=== PATIENT | male | born 1990 | race Caucasian/White ===

== ENCOUNTER 2017-10-23 12:39 | Emergency (ER) | payer OTHER ==
[2017-10-23] MEDS ORDERED: IBUPROFEN 400 MG TAB ONE (13:38)
--- NOTE | 2017-10-23 15:13 | ER ---
Nurse's Notes [facility] Name: Delvin Sheppard Age: 27 yrs Sex: Male : 1990 Arrival Date: 10/23/2017 Time: 12:43 Bed 12 Private MD: Dale Hopkins Diagnosis: Pain in right knee Presentation: 10/23 13:10 Presenting complaint: Patient states: R knee pain x 3 months. Pt states the pain went ss away, but after playing kickball yesterday the pain is much worse. Transition of care: patient was not received from another setting of care. Onset of symptoms is unknown. Risk Assessment: Do you want to hurt yourself or someone else? Patient reports no desire to harm self or others. Initial Sepsis Screen: Does the patient meet any 2 criteria? No. Patient's initial sepsis screen is negative. Does the patient have a suspected source of infection? No. Patient's initial sepsis screen is negative. Note Significant other suggest to just have an MRI done. Care prior to arrival: None. 13:10 Method Of Arrival: Wheelchair ss 13:10 Acuity: ASHLEY 4 ss Historical: - Allergies: 13:14 No Known Allergies; ss - Home Meds: 13:14 None [Active]; ss - PMHx: 13:14 chronic back pain; ss - PSHx: 13:14 None; ss - Immunization history:: Adult Immunizations up to date. - Social history:: Smoking status: Patient/guardian denies using tobacco. - Ebola Screening: : Patient denies exposure to infectious person Patient denies travel to an Ebola-affected area in the 21 days before illness onset. Screenin:26 Abuse screen: Denies threats or abuse. Denies injuries from another. Nutritional aj screening: No deficits noted. Tuberculosis screening: No symptoms or risk factors identified. Fall Risk None identified. Assessment: 13:26 General: Appears in no apparent distress. comfortable, Behavior is calm, cooperative, aj appropriate for age. Pain: Complains of pain in right knee. Neuro: Level of Consciousness is awake, alert, obeys commands, Oriented to person, place, time, situation. Respiratory: Airway is patent Respiratory effort is even, unlabored, Respiratory pattern is regular, symmetrical. Derm: Skin is intact, is healthy with good turgor, Skin is pink, warm \T\ dry. normal. 15:20 Reassessment: Patient appears in no apparent distress at this time. No changes from aj previously documented assessment. Patient and/or family updated on plan of care and expected duration. Pain level reassessed. Patient is alert, oriented x 3, equal unlabored respirations, skin warm/dry/pink. Vital Signs: 13:14 BP 148 / 90; Pulse 92; Resp 15; Temp 98.2(O); Pulse Ox 99% on R/A; Weight 86.18 kg; ss Height 6 ft. 0 in. (182.88 cm); Pain 8/10; 13:14 Body Mass Index 25.77 (86.18 kg, 182.88 cm) ED Course: 12:43 Patient arrived in ED. mr 12:43 Dale Hopkins MD is Private Physician. mr 13:13 Triage completed. ss 13:14 Arm band placed on right wrist. ss 13:25 Carla Cervantes, JOB is Primary Nurse. aj 13:26 Patient has correct armband on for positive identification. aj 13:28 Terrance Eng PA is PHCP. cp 13:28 Andi Noriega MD is Attending Physician. cp 14:24 X-ray completed. Portable x-ray completed in exam room. Patient tolerated procedure ml well. 14:37 XRAY Knee RIGHT 3 view In Process Unspecified. EDMS 15:12 Bryce Boudreaux MD is Referral Physician. cp 15:20 No provider procedures requiring assistance completed. Patient did not have IV access aj during this emergency room visit. Crutch training done. Knee immobilizer applied on right knee. Administered Medications: 13:38 Drug: Ibuprofen 800 mg Route: PO; aj 15:20 Follow up: Response: Pain is decreased aj Outcome: 15:12 Discharge ordered by . cp 15:20 Discharged to home ambulatory, with crutches, with family. aj 15:20 Condition: good 15:20 Discharge instructions given to patient, family, Instructed on discharge instructions, follow up and referral plans. medication usage, crutch walking, Demonstrated understanding of instructions, follow-up care, medications, crutch walking, Prescriptions given X 1. 15:22 Patient left the ED. aj Signatures: Dispatcher [employer] EDMS Carla Cervantes, RN Jemma Fishman Melissa ml Smirch, Shelby, RN RN ss Albertina, Terrance, PA PA cp
--- NOTE | 2017-10-23 15:13 | EDPHYS ---
Physician Documentation [facility] Name: Delvin Sheppard Age: 27 yrs Sex: Male : 1990 Arrival Date: 10/23/2017 Time: 12:43 Bed 12 Private MD: Dale Hopkins ED Physician Andi Noriega HPI: 10/23 13:34 This 27 yrs old Male presents to ER via Wheelchair with complaints of Knee cp Pain. 13:35 The patient presents with decreased range of motion, an injury, pain, that is acute, cp tenderness. The complaints affect the medial aspect of right knee. 13:35 Context: resulted from an unknown cause, the patient is not able to bear weight, the cp patient is not able to ambulate. 13:35 Onset: The symptoms/episode began/occurred yesterday. Associated signs and symptoms: cp Pertinent positives: knee gives out, Pertinent negatives calf tenderness, numbness. Treatment prior to arrival includes: no previous treatment. Historical: - Allergies: 13:14 No Known Allergies; ss - Home Meds: 13:14 None [Active]; ss - PMHx: 13:14 chronic back pain; ss - PSHx: 13:14 None; ss - Immunization history:: Adult Immunizations up to date. - Social history:: Smoking status: Patient/guardian denies using tobacco. - Ebola Screening: : Patient denies exposure to infectious person Patient denies travel to an Ebola-affected area in the 21 days before illness onset. ROS: 13:40 Constitutional: Negative for body aches, chills, fever, poor PO intake. cp 13:40 Eyes: Negative for injury, pain, redness, and discharge. cp 13:40 ENT: Negative for drainage from ear(s), ear pain, sore throat, difficulty swallowing, difficulty handling secretions. 13:40 Cardiovascular: Negative for chest pain, edema. 13:40 Respiratory: Negative for cough, shortness of breath, wheezing. 13:40 Abdomen/GI: Negative for abdominal pain, nausea, vomiting, and diarrhea. 13:40 MS/extremity: Positive for decreased range of motion, pain, swelling, tenderness, of the medial aspect of right knee. 13:40 All other systems are negative. Exam: 13:48 Constitutional: The patient appears in no acute distress, alert, awake, non-toxic, well cp developed, well nourished. 13:48 Head/Face: Normocephalic, atraumatic. cp 13:48 Eyes: Periorbital structures: appear normal, Conjunctiva: normal, no exudate, no injection, Lids and lashes: appear normal, bilaterally. 13:48 ENT: External ear(s): are unremarkable, Nose: is normal, Mouth: Lips: moist, Oral mucosa: moist. 13:48 Neck: ROM/movement: is normal, is supple, without pain, no range of motions limitations, no nuchal rigidity. 13:48 Chest/axilla: Inspection: normal. 13:48 Cardiovascular: Rate: normal, Rhythm: regular. 13:48 Respiratory: the patient does not display signs of respiratory distress, Respirations: normal, no use of accessory muscles, no retractions, no splinting, no tachypnea, labored breathing, is not present. 13:48 Abdomen/GI: Exam negative for discomfort, distension, guarding, Inspection: abdomen appears normal. 13:48 Musculoskeletal/extremity: Perfusion: the extremity is normally perfused throughout, Sensation intact. Joints: All joints are normal except the medial aspect of right knee displays painful range of motion, swelling, tenderness. 13:48 Skin: cellulitis, is not appreciated, no rash present. Vital Signs: 13:14 BP 148 / 90; Pulse 92; Resp 15; Temp 98.2(O); Pulse Ox 99% on R/A; Weight 86.18 kg; ss Height 6 ft. 0 in. (182.88 cm); Pain 8/10; 13:14 Body Mass Index 25.77 (86.18 kg, 182.88 cm) Procedures: 15:10 Splinting: Splint applied to right knee using knee immobilizer, Examined by me, post cp splint application: neurovascular intact, Patient tolerated well. 15:10 Crutch training provided to patient and/or family. Return demonstration given. cp MDM: 13:28 Patient medically screened. cp 14:00 Differential diagnosis: dislocation, closed fracture, contusion, sprain, strain. cp 15:11 Data reviewed: vital signs, nurses notes, radiologic studies, plain films. cp 15:11 Test interpretation: by ED physician or midlevel provider: plain radiologic studies. cp Counseling: I had a detailed discussion with the patient and/or guardian regarding: the historical points, exam findings, and any diagnostic results supporting the discharge/admit diagnosis, radiology results, the need for outpatient follow up, a orthopedic surgeon, to return to the emergency department if symptoms worsen or persist or if there are any questions or concerns that arise at home. Response to treatment: the patient's symptoms have mildly improved after treatment, and as a result, I will discharge patient. 10/23 13:33 Order name: XRAY Knee RIGHT 3 view cp 10/23 15:11 Order name: Crutches; Complete Time: 15:20 cp 10/23 15:11 Order name: Knee Immobilizer; Complete Time: 15:20 cp Administered Medications: 13:38 Drug: Ibuprofen 800 mg Route: PO; aj 15:20 Follow up: Response: Pain is decreased aj Disposition: 10/24 07:40 Co-signature as Attending Physician, Andi Noriega MD. Disposition: 10/23/17 15:12 Discharged to Home. Impression: Pain in right knee. - Condition is Stable. - Discharge Instructions: Knee Immobilizer, Knee Pain. - Prescriptions for Naprosyn 500 mg Oral Tablet - take 1 tablet by ORAL route 2 times per day take with food; 20 tablet. - Medication Reconciliation Form, Thank You Letter, Antibiotic Education, Prescription Opioid Use form. - Follow up: Bryce Boudreaux MD; When: 1 - 2 days; Reason: Recheck today's complaints. - Problem is new. - Symptoms have improved. Signatures: Dispatcher [employer] Carla Poole RN RN aj Smirch, Shelby, RN RN ss Page, Corey, PA PA Andi Bateman MD MD Corrections: (The following items were deleted from the chart) 10/23 15:22 15:12 10/23/2017 15:12 Discharged to Home. Impression: Pain in right knee. Condition is aj Stable. Forms are Medication Reconciliation Form, Thank You Letter, Antibiotic Education, Prescription Opioid Use. Follow up: Bryce Boudreaux; When: 1 - 2 days; Reason: Recheck today's complaints. Problem is new. Symptoms have improved. cp
--- NOTE | 2017-10-23 15:24 | RAD REPORT ---
EXAM DESCRIPTION: RAD - Knee Right 3 View - 10/23/2017 2:36 pm CLINICAL HISTORY: Right knee pain FINDINGS: No fracture or dislocation is seen. Mild narrowing of the medial compartment is present. If the patient's pain persists then a followup plain film series in 4 weeks would be recommended for re-evaluation
== END 2017-10-23 15:22 | disposition home or self-care (01) ==
LOC: ER 12:39
DX: M25.561 Pain in right knee (principal)
CPT/HCPCS: 99284